=== PATIENT | female | born 1990 | race Hispanic/Latino ===

== ENCOUNTER 2019-02-24 10:57 | Inpatient (IN) | payer MEDICAID, OTHER ==
[~2019-02-24] VITALS: Ht 157.5 cm; Wt 53.5 kg
[2019-02-24 11:21] LABS: APPEARANCE,URINE CLOUDY (CLEAR); BILIRUBIN,URINE NEGATIVE (NEGATIVE); COLOR,URINE YELLOW (YELLOW); GLUCOSE, URINE (UA) NEGATIVE (NEGATIVE); KETONES,URINE NEGATIVE (NEGATIVE); LEUKOCYTE ESTERASE ,URINE SMALL (NEGATIVE); NITRATE,URINE POSITIVE (NEGATIVE); OCCULT BLOOD,URINE NEGATIVE (NEGATIVE); PROTEIN,URINE TRACE mg/dL (NEGATIVE); UROBILINOGEN,URINE 0.2 mg/dL (0.2-1.0)
[2019-02-24 11:22] LABS: HCG,QUAL RESULT POSITIVE (NEGATIVE)
[2019-02-24 11:28] LABS: AMPHET/METH SCREEN,URINE NEGATIVE (NEGATIVE); BARBITURATE SCREEN, URINE NEGATIVE (NEGATIVE); BENZODIAZEPINES SCREEN,URINE NEGATIVE (NEGATIVE); CANNABINOID SCREEN,URINE NEGATIVE (NEGATIVE); COCAINE SCREEN,URINE POSITIVE (NEGATIVE); OPIATE SCREEN,URINE NEGATIVE (NEGATIVE); PHENCYCLIDINE SCREEN,URINE NEGATIVE (NEGATIVE)
[2019-02-24 11:31] LABS: RBC,URINE 0-1 /HPF (0-1)
[2019-02-24 11:32] LABS: BACTERIA,URINE Many /HPF (None Seen); MUCUS,URINE Rare LPF (None Seen); SQUAMOUS EPITHELIAL CELL,UR Few /HPF (0-2); WBC,URINE 26-50 /HPF (0-1)
[2019-02-24 12:23] LABS: BASOPHILS % (AUTO) 0.3 % (0.0-5.0); EOSINOPHILS % (AUTO) 0.3 % (0.0-8.0); HEMATOCRIT 29.5 % (36-48); LYMPHOCYTES % (AUTO) 19.6 % (21.0-51.0); MEAN CORPUSCULAR HEMOGLOBIN 31.6 pg (27.0-33.0); MEAN CORPUSCULAR HGB CONC 33.9 g/dL (32.0-36.0); MEAN CORPUSCULAR VOLUME 93.2 fL (79-99); NEUTROPHILS % (AUTO) 71.8 % (40.0-77.0); PLATELET COUNT (AUTO) 312 K/uL (130-400); RED BLOOD CELL COUNT(AUTO) 3.17 MIL/uL (4.00-5.50); RED CELL DISTRIBUTION WIDTH 13.2 % (11.0-15.5); WHITE BLOOD COUNT (AUTO) 10.5 K/uL (4.8-10.8)
[2019-02-24 12:28] LABS: CREATININE 0.5 mg/dL (0.5-1.5); POTASSIUM 3.7 mmol/L (3.5-5.1)
[2019-02-24] MEDS ORDERED: CEFTRIAXONE SODIUM 1 GM ONE (12:54)
[2019-02-24] MEDS: LACTATED RINGERS 1000ML 1,000 ML IV PRN ×3 (14:00→22:59)
[2019-02-24 15:52] LABS: HEMATOCRIT 28.8 % (36-48); MEAN CORPUSCULAR HEMOGLOBIN 31.4 pg (27.0-33.0); MEAN CORPUSCULAR HGB CONC 33.4 g/dL (32.0-36.0); MEAN CORPUSCULAR VOLUME 93.9 fL (79-99); PLATELET COUNT (AUTO) 321 K/uL (130-400); RED BLOOD CELL COUNT(AUTO) 3.06 MIL/uL (4.00-5.50); WHITE BLOOD COUNT (AUTO) 11.3 K/uL (4.8-10.8)
--- NOTE | 2019-02-24 16:21 | NUR ---
DROP IN - OPEN CPS JENNIFER CALLED LOCAL CPS OFFICE. PT HAS OPEN CASE- CASEWKER IS SCOTT CHADWICK [phone]. JENNIFER SPOKE TO SCOTT AND WAS TOLD THAT PT WAS RELEASED FROM [facility] 2 WEEKS AGO. PT HAS BEEN STAYING WITH HER MOTHER EDWIN LEGGETT [phone] [address] [place] [id number] SINCE PT'S RELEASE. PT GOES MISSING FROM MOTHER'S AND IS NOT HEARD FROM. SCOTT STATES THAT PT DOES NOT HAVE CUSTODY OF HER OTHER CHILDREN. INFORMED SCOTT THAT PT IS HERE AND IS POSITIVE FOR COCAINE, POOR HISTORIAN. NELDA TO CALL JENNIFER BACK FOR MORE INFORMATION. VAL NURSE INFORMED OF ABOVE
[2019-02-24 19:57] LABS: ALBUMIN 2.5 g/dL (3.5-5.0); BILIRUBIN,DIRECT 0.1 mg/dL (0.0-0.3); BILIRUBIN,TOTAL 0.2 mg/dL (0.2-1.0); TOTAL PROTEIN, SERUM 6.4 g/dL (6.0-8.3)
[2019-02-25] MEDS: LACTATED RINGERS 1000ML 1,000 ML IV PRN (06:21)
[2019-02-25 06:55] LABS: RAPID PLASMA REAGIN NONREACTIVE (NONREACTIVE)
--- NOTE | 2019-02-25 08:21 | NUR ---
CPS Sw left message for Shari Estrada, CPS milagros. waiting for response
--- NOTE | 2019-02-25 12:42 | NUR ---
F/U Sw placed call to pt's MOTHER EDWIN LEGGETT [phone] who states she was aware pt was at [facility] after she made missing persons report to [employer] police. Mother reports that pt has been missing since 02/09. Mother reports pt is schizophrenic and using cocaine. Mother states pt came to [place] to "get help". Mother states that we can't release pt, "it's too soon, she needs help for schizophrenia." Mother states pt has hx with [facility]. Mother states she has other children, and a son with schizophrenia too, so she can not come for pt.
--- NOTE | 2019-02-25 13:30 | NUR ---
CPS Schuyler spoke to Shari at CPS. Per Shari, pt has legal guardian that she believes is pt's mother Charmaine and also has an associate attorney Ad-Litem. Shari left message for the associate attorney and is waiting for response. Schuyler and CPS discussed if APS report was appropriate on pt. Shari to discuss with associate attorney as well. Schuyler left message for Nuria Cooper [phone] with [employer] for possible assistance with pt.
--- NOTE | 2019-02-25 17:06 | NUR ---
[facility] Schuyler recd call from Hannah [phone]. Staffed case with Hannah who states they are an Outpt Treatment program that can provide services to non funded pts. Hannah referred me to [facility] for possible assist. Anne-Marie Estrada [phone]. Per Hannah they might be able to find placement or know of somewhere that would accept pt with psych and drug issues. Schuyler to call in am
[2019-02-26] MEDS: LACTATED RINGERS 1000ML 1,000 ML IV PRN (04:00)
--- NOTE | 2019-02-26 08:06 | NUR ---
[facility] Sw left message for Lexi Montoya [phone]. Waiting for response Sw left message for Shari Estrada CPS casewker. Waiting for response Sw called in report to APS. ID#[id number] to ext [phone]
--- NOTE | 2019-02-26 08:48 | NUR ---
[facility] SCREENER SCHUYLER called [facility] Hotline and made referral. Screener to come see pt. Schuyler recd call from Lexi at [facility]. This program can assist a pt with psych and drug problems. Lexi was going to contact pt's casewker at [facility] and inform of admission. Lexi stated she would wait till Screener saw pt and made recommendation.
--- NOTE | 2019-02-26 08:58 | NUR ---
SW visited with pt who is awake. Pt not able to answer questions appropriately. Pt states she does not know where she is or how she got here. Pt states she as here with a friend, but he "he left me". Pt states that friend was the one who told her to come here from the [facility]. Pt sates her stomach was hurting and "I felt like I was opening up down there". Pt does know that she is , says that she does not know the father "we only did it once". I told pt that someone from [facility] was coming to see her. Pt states she has a casewker at [facility]. Sw waiting for [facility] to arrive
[2019-02-26 09:21] LABS: HEPATITIS Bs ANTIGEN SCREEN P Negative (Negative)
--- NOTE | 2019-02-26 10:01 | NUR ---
[facility] SCRE[facility] Schuyler met with [facility] screeners who are here to assess pt. Screener states pt was place at their [facility] here in [place] after she was dc from [facility] last week. Screener states they have a long hx with pt and will assess make recommendation. DC pending screener recommendations.
--- NOTE | 2019-02-26 11:52 | NUR ---
MIKO Payan met with [facility] screeners. Pt does not meet criteria for psych placement because these symptoms are drug induced. Since pt left [facility], she can not return. [facility] to follow up with pt tomorrow at home. Schuyler left message for [facility] case wker and [facility] [phone] [facility] casewker. Waiting for response. Schuyler called pt's mother Charmaine Meyer [phone]. Informed mother of [facility] screen recommendations and that pt has been discharged. Mother states [facility] placed her in [place], they need to bring her back. Informed mother that since pt left voluntarily, [facility] is not responsible for transporting pt back to [place]. Mother states she will let her know and if will be later when he get off of work
--- NOTE | 2019-02-26 12:33 | NUR ---
TRANSPORT HOME Sw staffed case with [facility] and [facility]. Sw spoke to pt's mother to verify that someone would be home to receive pt if we sent her home by taxi. Mother states pt's 26yr brother at home. Mother agreeable and appreciative of assist with transport to [place]. Schuyler verified address of mother's home with pt's mother. Iliana Andrade charge nurse notified of transport arrangements made.
--- NOTE | 2019-02-26 13:52 | NUR ---
CMD confirmed that pt was picked up at 12:23 and dropped off at home address at 1:11. [facility] casewker informed of above and Keke will notify Clarence Rodriguez casewker of this so they can do follow up visit at home
== END 2019-02-26 12:45 | disposition home or self-care (01) | DRG 832 ==
LOC: EDH 10:57 → OBSVTOIN 13:50 → LDH 13:50 → WSH 19:25
PROVIDERS: ADMIT Specialist; ATTEND Specialist
DX: O23.42 Unspecified infection of urinary tract in pregnancy, second trimester (principal); O99.322 Drug use complicating pregnancy, second trimester; Z3A.27 27 weeks gestation of pregnancy; F14.10 Cocaine abuse, uncomplicated
CPT/HCPCS: 36415; 76805; 80048; 80076; 80305; 81001; 81025; 84702; 85025; 85027; 86592; 86701; 86850; 86900; 86901; 87340; 87390; 87486; 87797; 96360; 96361; G0378; J0696; J7120